=== PATIENT | female | born 2000 | race Caucasian/White ===

== ENCOUNTER 2019-10-29 09:00 | Emergency (ER) | payer OTHER ==
[2019-10-29 09:59] LABS: Urine Blood NEGATIVE (NEG); Urine Glucose NEGATIVE (NEG); Urine Protein NEGATIVE (NEG); Urine Specific Gravity 1.015 (1.005-1.030)
[2019-10-29 11:29] LABS: Urine Bacteria <20 /HPF (<20); Urine Culture Reflex Order NOT NEEDED; Urine Mucus HEAVY /HPF (NONE SEEN); Urine RBC <5 /HPF (NONE SEEN)
--- NOTE | 2019-10-29 11:44 | EDPHYS ---
Physician Documentation [facility] Name: Cara Doherty Age: 19 yrs Sex: Female : 2000 Arrival Date: 10/29/2019 Time: 09:02 Bed 16 Private MD: ED Physician Mateo Orozco HPI: 10/29 11:45 This 19 yrs old Female presents to ER via Ambulatory with complaints of kb Urinary Problem. 11:45 The patient presents with urinary symptoms, frequency. Onset: The symptoms/episode kb began/occurred 3 week(s) ago. Modifying factors: The symptoms are alleviated by nothing, the symptoms are aggravated by nothing. Associated signs and symptoms: Pertinent positives: urinary frequency. Associated signs and symptoms: Pertinent negatives: dysuria, fever. Severity of symptoms: At their worst the symptoms were moderate, in the emergency department the symptoms are unchanged. The patient has not experienced similar symptoms in the past. The patient has been recently seen by a physician:. Mother states pt has had urinary frequency for 3 weeks. PCP diagnosed a UTI at first and pt completed antibiotics, but is still having frequency. Denies fever, pain or any other urinary symptoms. 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 - Social history:: Smoking status: Patient denies any tobacco usage or history of. - Ebola Screening: : No symptoms or risks identified at this time. ROS: 11:38 Constitutional: Negative for fever, chills, and weight loss, ENT: Negative for injury, kb pain, and discharge, Neck: Negative for injury, pain, and swelling, Cardiovascular: Negative for chest pain, palpitations, and edema, Respiratory: Negative for shortness of breath, cough, wheezing, and pleuritic chest pain, Abdomen/GI: Negative for abdominal pain, nausea, vomiting, diarrhea, and constipation, Back: Negative for injury and pain, MS/Extremity: Negative for injury and deformity, Skin: Negative for injury, rash, and discoloration, Neuro: Negative for headache, weakness, numbness, tingling, and seizure. 11:38 : Positive for urinary frequency. Exam: 11:38 Constitutional: This is a well developed, well nourished patient who is awake, alert, kb and in no acute distress. Head/Face: Normocephalic, atraumatic. ENT: Nares patent. No nasal discharge, no septal abnormalities noted. Tympanic membranes are normal and external auditory canals are clear. Oropharynx with no redness, swelling, or masses, exudates, or evidence of obstruction, uvula midline. Mucous membranes moist. Neck: Trachea midline, no thyromegaly or masses palpated, and no cervical lymphadenopathy. Supple, full range of motion without nuchal rigidity, or vertebral point tenderness. No Meningismus. Chest/axilla: Normal chest wall appearance and motion. Nontender with no deformity. No lesions are appreciated. Cardiovascular: Regular rate and rhythm with a normal S1 and S2. No gallops, murmurs, or rubs. Normal PMI, no JVD. No pulse deficits. Respiratory: Lungs have equal breath sounds bilaterally, clear to auscultation and percussion. No rales, rhonchi or wheezes noted. No increased work of breathing, no retractions or nasal flaring. Abdomen/GI: Soft, non-tender, with normal bowel sounds. No distension or tympany. No guarding or rebound. No evidence of tenderness throughout. Back: No spinal tenderness. No costovertebral tenderness. Full range of motion. Skin: Warm, dry with normal turgor. Normal color with no rashes, no lesions, and no evidence of cellulitis. MS/ Extremity: Pulses equal, no cyanosis. Neurovascular intact. Full, normal range of motion. Neuro: Awake and alert, GCS 15, oriented to person, place, time, and situation. Cranial nerves II-XII grossly intact. Motor strength 5/5 in all extremities. Sensory grossly intact. Cerebellar exam normal. Normal gait. Vital Signs: 09:24 BP 121 / 87; Pulse 102; Resp 18 S; Temp 97.9(O); Pulse Ox 100% on R/A; aa5 09:24 Weight 40.37 kg (M); aa5 10:45 BP 125 / 75; Pulse 102; Resp 19 S; Pulse Ox 100% on R/A; ca1 11:12 BP 114 / 70; Pulse 92; Resp 17 S; Pulse Ox 100% on R/A; ca1 12:16 BP 111 / 80; Pulse 96; Resp 15 S; Pulse Ox 100% on R/A; ca1 MDM: 10:25 Patient medically screened. kb 11:38 Data reviewed: vital signs, nurses notes. Data interpreted: Pulse oximetry: on room air kb is 100 %. Interpretation: normal. 11:38 Counseling: I had a detailed discussion with the patient and/or guardian regarding: the kb historical points, exam findings, and any diagnostic results supporting the discharge/admit diagnosis, lab results, the need for outpatient follow up, a family practitioner, to return to the emergency department if symptoms worsen or persist or if there are any questions or concerns that arise at home. 10/29 09:41 Order name: Urine Dipstick--Ancillary (enter results); Complete Time: 10:03 em1 10/29 09:41 Order name: Urine --Ancillary (enter results); Complete Time: 10:03 em1 10/29 09:25 Order name: Urine Dipstick-Ancillary (obtain specimen); Complete Time: 09:40 kb 10/29 09:25 Order name: Urine Test (obtain specimen); Complete Time: 09:40 kb 10/29 10:25 Order name: Urine Microscopic Only; Complete Time: 11:31 kb Administered Medications: No medications were administered Disposition: 17:13 Co-signature as Attending Physician, Mateo Orozco MD. rn Disposition: 10/29/19 11:43 Discharged to Home. Impression: Urinary frequency. - Condition is Stable. - Discharge Instructions: Urinary Frequency, Adult. - School release form, Medication Reconciliation Form, Thank You Letter, Antibiotic Education, Prescription Opioid Use form. - Follow up: Emergency Department; When: As needed; Reason: Worsening of condition. Follow up: Private Physician; When: 2 - 3 days; Reason: Recheck today's complaints, Continuance of care, Re-evaluation by your physician. Signatures: Dispatcher [employer] EDGuera Larios, WAQAS HARPER-Mateo Prather MD MD rn Calderon, Audri RN RN aa5 Afsaneh Nuñez RN RN ca1 Corrections: (The following items were deleted from the chart) 12:18 11:43 10/29/2019 11:43 Discharged to Home. Impression: Urinary frequency. Condition is ca1 Stable. Forms are Medication Reconciliation Form, Thank You Letter, Antibiotic Education, Prescription Opioid Use. Follow up: Emergency Department; When: As needed; Reason: Worsening of condition. Follow up: Private Physician; When: 2 - 3 days; Reason: Recheck today's complaints, Continuance of care, Re-evaluation by your physician. kb
--- NOTE | 2019-10-29 11:44 | ER ---
Nurse's Notes [facility] Name: Cara Doherty Age: 19 yrs Sex: Female : 2000 Arrival Date: 10/29/2019 Time: 09:02 Bed 16 Private MD: Diagnosis: Urinary frequency Presentation: 10/29 09:20 Presenting complaint: Mother states: "she's had a UTI for about 2 weeks ago and she aa5 finished her amoxicillin already but it's not getting better". Pt's mother reports urinary frequency. Pt states "I just feel like I'm going to pee in my pants". Pt denies burning with urination. Pt's mother states "she's also lost about 15 lbs over the last few months". Transition of care: patient was not received from another setting of care. Onset of symptoms was October 2019. Risk Assessment: Do you want to hurt yourself or someone else? Patient reports no desire to harm self or others. Initial Sepsis Screen: Does the patient meet any 2 criteria? No. Patient's initial sepsis screen is negative. Does the patient have a suspected source of infection? No. Patient's initial sepsis screen is negative. Care prior to arrival: None. 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 - Social history:: Smoking status: Patient denies any tobacco usage or history of. - Ebola Screening: : No symptoms or risks identified at this time. Screenin:34 Abuse screen: Denies threats or abuse. Denies injuries from another. Nutritional ca1 screening: No deficits noted. Tuberculosis screening: No symptoms or risk factors identified. Fall Risk Secondary diagnosis (15 points) seizures, Gait- Impaired (20 pts.). Mental Status- Overestimates/Forgets Limitations (15 pts.). Total Wheeler Fall Scale indicates High Risk Score (45 or more points). Fall prevention measures have been instituted. Side Rails Up X 2 Frequent Obs/Assessments Occuring Family Present and informed to notify staff if the need to leave the bedside As available patient and family educated on Fall Prevention Program and Strategies. Assessment: 10:34 General: Appears in no apparent distress. comfortable, Behavior is calm, cooperative. ca1 Pain: Denies pain. Neuro: Level of Consciousness is awake, alert, obeys commands, Oriented to person, place, time, situation. Cardiovascular: Heart tones S1 S2 present Capillary refill < 3 seconds Patient's skin is warm and dry. Respiratory: Airway is patent Respiratory effort is even, unlabored, Respiratory pattern is regular, symmetrical, Breath sounds are clear bilaterally. GI: Abdomen is flat, non-distended, Bowel sounds present X 4 quads. Abd is soft and non tender X 4 quads. : Denies burning with urination, Parent/caregiver report the patient having urinary frequency urgency. EENT: No signs and/or symptoms were reported regarding the EENT system. Derm: Skin is intact, is healthy with good turgor, Skin is pink, warm \\T\\ dry. Musculoskeletal: Circulation, motion, and sensation intact. Capillary refill < 3 seconds. 11:12 Reassessment: Patient appears in no apparent distress at this time. No changes from ca1 previously documented assessment. Patient and/or family updated on plan of care and expected duration. Pain level reassessed. 12:16 Reassessment: Patient appears in no apparent distress at this time. No changes from ca1 previously documented assessment. Vital Signs: 09:24 BP 121 / 87; Pulse 102; Resp 18 S; Temp 97.9(O); Pulse Ox 100% on R/A; aa5 09:24 Weight 40.37 kg (M); aa5 10:45 BP 125 / 75; Pulse 102; Resp 19 S; Pulse Ox 100% on R/A; ca1 11:12 BP 114 / 70; Pulse 92; Resp 17 S; Pulse Ox 100% on R/A; ca1 12:16 BP 111 / 80; Pulse 96; Resp 15 S; Pulse Ox 100% on R/A; ca1 ED Course: 09:02 Patient arrived in ED. as 09:14 [facility] Rowe [facility]-C [facility]. kb 09:14 Mateo Orozco MD is Attending Physician. kb 09:15 Arm band placed on. aa5 09:22 Triage completed. aa5 10:30 Afsaneh Nuñez, KOLE is Primary Nurse. ca1 10:34 Patient has correct armband on for positive identification. Bed in low position. Call ca1 light in reach. Side rails up X2. Adult w/ patient. Pulse ox on. NIBP on. Warm blanket given. 10:44 Urine collected: clean catch specimen, clear, Amount Voided: 90mL. ca1 12:17 No provider procedures requiring assistance completed. Patient did not have IV access ca1 during this emergency room visit. Administered Medications: No medications were administered Outcome: 11:43 Discharge ordered by MD. kb 12:17 Discharged to home ambulatory, with family. ca1 12:17 Condition: stable 12:17 Discharge instructions given to mother Instructed on discharge instructions, follow up and referral plans. Demonstrated understanding of instructions, follow-up care. 12:18 Patient left the ED. ca1 Signatures: Guera Rowe, ACTIVITIES OFFICER-C ACTIVITIES OFFICER-Gloria Wilson Audri, RN RN aa Afsaneh Nuñez, KOLE RN ca1 Corrections: (The following items were deleted from the chart) 12:17 11:12 Reassessment: Patient appears in no apparent distress at this time. Patient is ca1 alert, oriented x 3, equal unlabored respirations, skin warm/dry/pink. ca1 12:17 12:16 Reassessment: Patient appears in no apparent distress at this time. Patient is ca1 alert, oriented x 3, equal unlabored respirations, skin warm/dry/pink. ca1
[2019-10-29 15:21] VITALS: O2SAT 100
[2019-10-29 15:23] VITALS: TEMP 97.9
[2019-10-29 15:26] VITALS: BP 111/80
== END 2019-10-29 12:18 | disposition home or self-care (01) ==
LOC: ER 09:00
DX: R35.0 Frequency of micturition (principal); G40.909 Epilepsy, unspecified, not intractable, without status epilepticus
CPT/HCPCS: 81003; 81015; 81025; 99283

== ENCOUNTER 2022-04-18 11:13 | Emergency (ER) | payer OTHER ==
[2022-04-18] MEDS ORDERED: NA CHLORIDE 0.9% 1,000 ML ONE (11:26)
[2022-04-18 11:49] LABS: Potassium 4.4 mmol/L (3.5-5.1)
--- NOTE | 2022-04-18 12:52 | ER ---
Nurse's Notes [facility] Name: Cara Doherty Age: 21 yrs Sex: Female : 2000 Arrival Date: 04/18/2022 Time: 11:14 Bed 11 Private MD: Diagnosis: Epileptic seizures related to external causes, not intractable Presentation: 04/18 11:16 Chief complaint: EMS states: Toned out for witnessed seizure. Coronavirus screen: tp1 Vaccine status: Patient reports receiving the 2nd dose of the covid vaccine. Client denies travel out of the [place] in the last 14 days. At this time, the client does not indicate any symptoms associated with coronavirus-19. Ebola Screen: Patient denies exposure to infectious person. Patient denies travel to an Ebola-affected area in the 21 days before illness onset. Initial Sepsis Screen: Does the patient meet any 2 criteria? No. Patient's initial sepsis screen is negative. Does the patient have a suspected source of infection? No. Patient's initial sepsis screen is negative. Risk Assessment: Do you want to hurt yourself or someone else? Patient reports no desire to harm self or others. Onset of symptoms was April 18, 2022. 11:16 Method Of Arrival: EMS: [facility] tp1 11:16 Acuity: NOEMY 3 tp1 11:30 Care prior to arrival: Glucose check: 78. tp1 Triage Assessment: 11:23 General: Appears in no apparent distress. comfortable, Behavior is calm, cooperative. tp1 Pain: Denies pain. EENT: Oral mucosa is dry. Neuro: Level of Consciousness is awake, alert, obeys commands, Oriented to person, place, time, situation. Neuro: Reports dizziness, weakness since the past 2-3 days. Cardiovascular: Patient's skin is warm and dry. Respiratory: Airway is patent Respiratory effort is even, unlabored, Respiratory pattern is regular. GI: Patient currently denies diarrhea, nausea, vomiting. : No signs and/or symptoms were reported regarding the genitourinary system. Derm: Skin is intact, Skin is pink, warm \\T\\ dry. Musculoskeletal: Circulation, motion, and sensation intact. Historical: - Allergies: 11:23 No Known Allergies; tp1 - Home Meds: 11:23 Lamictal Oral [Active]; Risperdal Oral [Active]; control pill [Active]; tp1 - PMHx: 11:23 Autism; epilepsy; tp1 - PSHx: 11:23 heart ablasion; tp1 - Immunization history:: Adult Immunizations unknown, Client reports receiving the 2nd dose of the Covid vaccine. - Social history:: Smoking status: Patient denies any tobacco usage or history of. - Family history:: not pertinent. - Hospitalizations: : No recent hospitalization is reported. Screenin:50 Abuse screen: Denies threats or abuse. Denies injuries from another. Nutritional ss screening: No deficits noted. Tuberculosis screening: Never had TB. Fall Risk Fall in past 12 months (25 points). Secondary diagnosis (15 points) seizures, IV access (20 points). Ambulatory Aid- None/Bed Rest/Nurse Assist (0 pts). Gait- Normal/Bed Rest/Wheelchair (0 pts) Mental Status- Oriented to own ability (0 pts). Assessment: 12:50 Reassessment: Patient appears in no apparent distress at this time. Patient and/or ss family updated on plan of care and expected duration. Pain level reassessed. Patient is alert, oriented x 3, equal unlabored respirations, skin warm/dry/pink. Pt c/o some mild dizziness. mother states, "that's ok. We will take care of it at home." Dr. Orozco notified that mother and patient are ready to go home. Patient denies pain at this time. Patient states feeling better. Patient states symptoms have improved. Vital Signs: 11:16 BP 102 / 73; Pulse 76; Resp 24; Temp 98.9; Pulse Ox 100% on R/A; Weight 43.09 kg; tp1 Height 0 ft. 1 in. (5 cm); Pain 0/10; 11:16 Body Mass Index 49650.51 (43.09 kg, 5 cm) tp1 ED Course: 11:14 Patient arrived in ED. rn 11:14 Mateo Orozco MD is Attending Physician. rn 11:23 Triage completed. tp1 11:29 Initial lab(s) drawn, by me, sent to lab. Inserted saline lock: 22 gauge in right jl7 antecubital area, using aseptic technique. Blood collected. 11:29 Arm band placed on. tp1 12:15 Oriana Hanna, KOLE is Primary Nurse. ss 12:50 Patient has correct armband on for positive identification. Bed in low position. Call ss light in reach. Side rails up X2. 13:11 No provider procedures requiring assistance completed. IV discontinued, intact, ss bleeding controlled, No redness/swelling at site. Pressure dressing applied. Administered Medications: 11:29 Drug: NS 0.9% 1000 ml Route: IV; Rate: 1000 ml; Site: right antecubital; jl7 12:43 Follow up: IV Status: Completed infusion; IV Intake: 1000ml ss Medication: 12:58 VIS not applicable for this client. ss Intake: 12:43 IV: 1000ml; Total: 1000ml. Outcome: 12:51 Discharge ordered by . rn 13:11 Discharged to home ambulatory. ss 13:11 Condition: good 13:11 Discharge instructions given to patient, Instructed on discharge instructions, follow up and referral plans. medication usage, Demonstrated understanding of instructions, follow-up care. 13:12 Patient left the ED. Signatures: Mateo Orozco MD MD rn Smirch, Shelby RN RN Sonam Serra RN RN jl7 Hoda Samlls tp1
--- NOTE | 2022-04-18 12:52 | EDPHYS ---
Physician Documentation [facility] Name: Cara Doherty Age: 21 yrs Sex: Female : 2000 Arrival Date: 04/18/2022 Time: 11:14 Bed 11 Private MD: ED Physician Mateo Orozco HPI: 04/18 12:47 This 21 yrs old Female presents to ER via EMS with complaints of seizure. rn 12:47 The patient presents after having a single isolated seizure. Seizure onset: just prior rn to arrival. Associated injury: The patient did not suffer any apparent associated injury. Current symptoms: Currently, the patient is not experiencing any symptoms. The patient has experienced similar episodes in the past. Mother and patient report recent COVID infection, getting over it now, no fever, had seizure today, hx of seizures, just had lamictal doubled last week, but given generic and mother concerned not working. Now back to baseline. Not eating or drinking much since COVID infection. NO trauma.. Historical: - Allergies: 11:23 No Known Allergies; tp1 - Home Meds: 11:23 Lamictal Oral [Active]; Risperdal Oral [Active]; control pill [Active]; tp1 - PMHx: 11:23 Autism; epilepsy; tp1 - PSHx: 11:23 heart ablasion; tp1 - Immunization history:: Adult Immunizations unknown, Client reports receiving the 2nd dose of the Covid vaccine. - Social history:: Smoking status: Patient denies any tobacco usage or history of. - Family history:: not pertinent. - Hospitalizations: : No recent hospitalization is reported. ROS: 12:47 Constitutional: Negative for fever, chills, and weight loss, Eyes: Negative for injury, rn pain, redness, and discharge, Neck: Negative for injury, pain, and swelling, Cardiovascular: Negative for chest pain, palpitations, and edema, Respiratory: Negative for shortness of breath, cough, wheezing, and pleuritic chest pain, Abdomen/GI: Negative for abdominal pain, nausea, vomiting, diarrhea, and constipation, Back: Negative for injury and pain, MS/Extremity: Negative for injury and deformity, Skin: Negative for injury, rash, and discoloration, Neuro: Negative for headache, weakness, numbness, tingling Exam: 12:47 Constitutional: This is a well developed, well nourished patient who is awake, alert, rn and in no acute distress. Head/Face: Normocephalic, atraumatic. Eyes: Periorbital areas with no swelling, redness, or edema. ENT: dry MM Cardiovascular: Regular rate and rhythm. No pulse deficits. Respiratory: No increased work of breathing, no retractions or nasal flaring. Abdomen/GI: soft, non-tender Skin: Warm, dry MS/ Extremity: Pulses equal, no cyanosis. Neuro: Awake and alert, GCS 15 Vital Signs: 11:16 BP 102 / 73; Pulse 76; Resp 24; Temp 98.9; Pulse Ox 100% on R/A; Weight 43.09 kg; tp1 Height 0 ft. 1 in. (5 cm); Pain 0/10; 11:16 Body Mass Index 55387.51 (43.09 kg, 5 cm) tp1 MDM: 11:14 Patient medically screened. rn 12:47 Differential diagnosis: seizure. Data reviewed: vital signs, nurses notes, lab test rn result(s), and as a result, I will discharge patient. Counseling: I had a detailed discussion with the patient and/or guardian regarding: the historical points, exam findings, and any diagnostic results supporting the discharge/admit diagnosis, lab results, the need for outpatient follow up, to return to the emergency department if symptoms worsen or persist or if there are any questions or concerns that arise at home. Response to treatment: the patient's symptoms have resolved after treatment, the patient's condition has returned to base line, the patient is now symptom free, patient is well hydrated. and as a result, I will discharge patient. Special discussion: I discussed with the patient/guardian in detail that at this point there is no indication for admission to the hospital. It is understood, however, that if the symptoms persist or worsen the patient needs to return immediately for re-evaluation. ED course: Mother states back to baseline, already called neurologist and going to get prescription of former lamictal. Well hydrated. Will dc home.. 04/18 11:15 Order name: Basic Metabolic Panel; Complete Time: 12:04 rn 04/18 11:15 Order name: IV Start; Complete Time: 11:29 rn 04/18 11:15 Order name: Cardiac monitoring; Complete Time: 11:34 rn Administered Medications: 11:29 Drug: NS 0.9% 1000 ml Route: IV; Rate: 1000 ml; Site: right antecubital; jl7 12:43 Follow up: IV Status: Completed infusion; IV Intake: 1000ml ss Disposition Summary: 04/18/22 12:51 Discharge Ordered Location: Home rn Problem: an acute exacerbation rn Symptoms: have improved rn Condition: Stable rn Diagnosis - Epileptic seizures related to external causes, not intractable rn Followup: rn - With: Private Physician - When: As needed - Reason: Recheck today's complaints, Re-evaluation by your physician Discharge Instructions: - Discharge Summary Sheet rn - Seizure, Adult rn Forms: - Medication Reconciliation Form rn - Thank You Letter rn - Antibiotic rn labor and delivery - Prescription Opioid Use rn - Work release form ss Signatures: Dispatcher [employer] Mateo Rueda MD MD rn Leal, Jahala, RN RN jl7 Hoda Smalls tp1 Oriana Hanna RN ss Corrections: (The following items were deleted from the chart) 12:57 11:15 Urine Dipstick-Ancillary ordered. rn ss
[2022-04-18 13:24] VITALS: BP 102/73; TEMP 98.9; O2SAT 100
== END 2022-04-18 13:12 | disposition home or self-care (01) ==
LOC: ER 11:13
DX: G40.509 Epileptic seizures related to external causes, not intractable, without status epilepticus (principal); F84.0 Autistic disorder; Z86.16 Personal history of COVID-19
CPT/HCPCS: 80048; 36415; 96360; 99284; J7030

== ENCOUNTER 2022-07-11 14:13 | Emergency (ER) | payer OTHER ==
[2022-07-11] MEDS ORDERED: NA CHLORIDE 0.9% 1,000 ML ONE (14:42)
[2022-07-11] MEDS ORDERED: IBUPROFEN 200 MG TAB PO ONE (14:42)
[2022-07-11 14:54] LABS: Absolute Lymphocytes (CBC) 1.1 K/uL (0.7-4.9); Hematocrit 44.6 % (36.0-45.0); Lymphocytes % 11.7 % (15.3-44.8); MCV 88.1 fL (80-100); MPV 7.2 fL (7.6-11.3); RBC Red Blood Cell Count 5.07 M/uL (3.86-4.86)
[2022-07-11 15:10] LABS: Albumin 3.8 g/dL (3.4-5.0); Bilirubin Total 0.5 mg/dL (0.2-1.0); Potassium 3.7 mmol/L (3.5-5.1); Protein, Total 7.5 g/dL (6.4-8.2)
--- NOTE | 2022-07-11 15:13 | RAD REPORT ---
EXAM DESCRIPTION: CT - Head Brain Wo Cont - 07/11/2022 3:00 pm CLINICAL HISTORY: trauma fall, seizure COMPARISON: <Comparisons> TECHNIQUE: Axial 5 mm thick images of the head were obtained without IV contrast. All CT scans are performed using dose optimization technique as appropriate and may include automated exposure control or mA/KV adjustment according to patient size. FINDINGS: No intracranial hemorrhage, mass, edema or shift of mid-line structures. No acute infarcti on changes seen. No abnormal extra-axial fluid collections. Ventricles are normal. No heterotopic gra y matter or developmental abnormality seen. No finding as a seizure focus. Mastoid air cells and visualized portions of the paranasal sinuses are clear. No acute bony findings. Very small right parietal scalp hematoma is seen. IMPRESSION: Negative non-contrast CT head examination.
[2022-07-11 15:22] LABS: Urine Blood Negative (Negative); Urine Glucose Negative (Negative); Urine Protein Trace (Negative); Urine Specific Gravity >=1.030 (1.005-1.030); Urine pH 5.5 (5.0-7.0)
--- NOTE | 2022-07-11 15:31 | ER ---
Nurse's Notes [facility] [place], [place] [facility] Name: Cara Doherty Age: 21 yrs Sex: Female : 2000 Arrival Date: 07/11/2022 Time: 14:19 Bed 7 Private MD: Diagnosis: Other seizures Presentation: 07/11 14:19 Chief complaint: EMS states: Had unwitnessed seizure, hx of seizures, family found pt ph on kitchen floor, was post-ictal for a short period, A\T\O x 4 w/ GCS 15 upon arrival to ER, is compliant w/ medications, reports pain to back of head, hematoma present. Coronavirus screen: Vaccine status: Patient reports receiving the 2nd dose of the covid vaccine. Ebola Screen: No symptoms or risks identified at this time. Initial Sepsis Screen: Does the patient meet any 2 criteria? No. Patient's initial sepsis screen is negative. Does the patient have a suspected source of infection? No. Patient's initial sepsis screen is negative. Risk Assessment: Do you want to hurt yourself or someone else? Patient reports no desire to harm self or others. Onset of symptoms was July 11, 2022. 14:19 Method Of Arrival: EMS: [facility] ph 14:19 Acuity: NOEMY 3 ph Triage Assessment: 14:23 General: Appears in no apparent distress. comfortable, slender, well groomed, Behavior ph is calm, cooperative, appropriate for age. Pain: Complains of pain in scalp. Neuro: Level of Consciousness is awake, alert, obeys commands, Oriented to person, place, time, situation, Seizure activity reported prior to arrival. Cardiovascular: Capillary refill < 3 seconds in bilateral fingers Patient's skin is warm and dry. Respiratory: Airway is patent Respiratory effort is even, unlabored, Respiratory pattern is regular, symmetrical. Derm: Skin is pink, warm \T\ dry. Musculoskeletal: Circulation, motion, and sensation intact. Range of motion: intact in all extremities. PSYCHOLOGICAL OPERATIONS SPECIALIST: 14:25 LMP N/A - control method ph Historical: - Allergies: 14:23 No Known Allergies; ph - Home Meds: 14:23 control pill [Active]; Lamictal Oral [Active]; Risperdal Oral [Active]; ph - PMHx: 14:23 Autism; epilepsy; ph - PSHx: 14:23 Heart ablasion; ph - Immunization history:: Adult Immunizations up to date. - Social history:: Smoking status: Patient denies any tobacco usage or history of. Screenin:24 Abuse screen: Denies threats or abuse. Denies injuries from another. Nutritional ph screening: No deficits noted. Tuberculosis screening: No symptoms or risk factors identified. Fall Risk Fall in past 12 months (25 points). Secondary diagnosis (15 points) seizures, IV access (20 points). Ambulatory Aid- None/Bed Rest/Nurse Assist (0 pts). Gait- Normal/Bed Rest/Wheelchair (0 pts) Mental Status- Oriented to own ability (0 pts). Total Wheeler Fall Scale indicates High Risk Score (45 or more points). Fall prevention measures have been instituted. Side Rails Up X 2 Frequent Obs/Assessments Occuring Family Present and informed to notify staff if the need to leave the bedside As available patient and family educated on Fall Prevention Program and Strategies. Assessment: 14:46 General: SEE TRIAGE ASSESSMENT. ph 14:50 Reassessment: Patient appears in no apparent distress at this time. No changes from db previously documented assessment. Patient is alert, oriented x 3, equal unlabored respirations, skin warm/dry/pink. Neuro: No deficits noted. Neuro: Level of Consciousness is awake, alert, obeys commands, Oriented to person, place, time. Cardiovascular: No deficits noted. Respiratory: No deficits noted. GI: No deficits noted. : No deficits noted. EENT: No deficits noted. Derm: No deficits noted. Musculoskeletal: No deficits noted. 15:30 Reassessment: Patient appears in no apparent distress at this time. No changes from db previously documented assessment. Patient and/or family updated on plan of care and expected duration. Pain level reassessed. Patient is alert, oriented x 3, equal unlabored respirations, skin warm/dry/pink. Patient denies pain at this time. 16:30 Reassessment: Patient appears in no apparent distress at this time. No changes from db previously documented assessment. Patient and/or family updated on plan of care and expected duration. Pain level reassessed. Patient is alert, oriented x 3, equal unlabored respirations, skin warm/dry/pink. Patient denies pain at this time. Patient states feeling better. Patient states symptoms have improved. Vital Signs: 14:19 BP 108 / 84; Pulse 104; Resp 18; Temp 98.0(TE); Pulse Ox 99% on R/A; Weight 45.36 kg; ph Height 5 ft. 5 in. (165.10 cm); 14:30 BP 108 / 84; Pulse 104; Resp 18; Pulse Ox 98% ; db 16:30 BP 121 / 81; Pulse 94; Resp 20; Pulse Ox 99% ; Pain 0/10; db 14:19 Body Mass Index 16.64 (45.36 kg, 165.10 cm) ph Blaine Coma Score: 14:23 Eye Response: spontaneous(4). Verbal Response: oriented(5). Motor Response: obeys ph commands(6). Total: 15. ED Course: 14:19 Patient arrived in ED. ph 14:19 Jim Marroquin MD is Attending Physician. jr11 14:23 Triage completed. ph 14:24 Arm band placed on Patient placed in an exam room, on a stretcher, on pulse oximetry. ph 14:25 Seizure precautions initiated. ph 14:30 Geovanna Awad RN is Primary Nurse. ph 14:45 Initial lab(s) drawn, by ky, sent to lab. Inserted saline lock: 22 gauge in right ph antecubital area, using aseptic technique. Blood collected. 16:30 Warm blanket given. db 16:30 No provider procedures requiring assistance completed. db 16:30 IV discontinued, intact, bleeding controlled, No redness/swelling at site. Pressure ph dressing applied. Administered Medications: 14:45 Drug: Ibuprofen 400 mg Route: PO; ph 16:15 Follow up: Response: No adverse reaction db 15:26 Drug: NS 0.9% 1000 ml Route: IV; Rate: 1 bolus; Site: right antecubital; ph 16:15 Follow up: Response: No adverse reaction; IV Status: Completed infusion; IV Intake: db 1000ml Medication: 14:25 VIS not applicable for this client. ph Intake: 16:15 IV: 1000ml; Total: 1000ml. db Outcome: 15:31 Discharge ordered by . jr11 16:35 Discharged to home ambulatory. db 16:35 Condition: stable 16:35 Condition: stable 16:35 Discharge instructions given to family, Instructed on discharge instructions. 16:36 Patient left the ED. db Signatures: Geovanna Awad RN RN ph Jim Marroquin MD MD jr11 Kendal Keys RN RN db
--- NOTE | 2022-07-11 15:31 | EDPHYS ---
Physician Documentation [facility] Name: Cara Doherty Age: 21 yrs Sex: Female : 2000 Arrival Date: 07/11/2022 Time: 14:19 Bed 7 Private MD: ED Physician Jim Marroquin HPI: 07/11 14:27 This 21 yrs old Female presents to ER via EMS with complaints of Seizure. jr11 14:27 The patient presents after having a single isolated seizure. Character of seizure(s): jr11 Loss of consciousness: the patient experienced loss of consciousness, Motor activity: unwitnessed . Seizure onset: just prior to arrival. Context: the seizure(s) was witnessed, by no one, occurred at home. Pt did not take mamictal today, last breakthrough sz 1 mo ago . Denies any concerns other than injury to posterior scalp. GENERALIST: 14:25 LMP N/A - control method ph Historical: - Allergies: 14:23 No Known Allergies; ph - Home Meds: 14:23 control pill [Active]; Lamictal Oral [Active]; Risperdal Oral [Active]; ph - PMHx: 14:23 Autism; epilepsy; ph - PSHx: 14:23 Heart ablasion; ph - Immunization history:: Adult Immunizations up to date. - Social history:: Smoking status: Patient denies any tobacco usage or history of. ROS: 14:27 All other systems are negative. jr11 Exam: 14:27 Constitutional: This is a well developed, well nourished patient who is awake, alert, jr11 and in no acute distress. Head/Face: 2x2cm hematoma posterior scalp Eyes: Extra-ocular motions intact. Lids and lashes normal. Conjunctiva and sclera are non-icteric and not injected. Cornea within normal limits. Periorbital areas with no swelling, redness, or edema. ENT: Nares patent. No nasal discharge, no septal abnormalities noted. Oropharynx with no redness, swelling, or masses, exudates, or evidence of obstruction, uvula midline. Mucous membranes moist. Neck: Trachea midline, no thyromegaly or masses palpated, and no cervical lymphadenopathy. Supple, full range of motion without nuchal rigidity, or vertebral point tenderness. No Meningismus. Chest/axilla: Normal chest wall appearance and motion. Nontender with no deformity. No lesions are appreciated. Cardiovascular: Regular rate and rhythm with a normal S1 and S2. No gallops, murmurs, or rubs. Normal PMI, no JVD. No pulse deficits. Respiratory: Lungs have equal breath sounds bilaterally, clear to auscultation and percussion. No rales, rhonchi or wheezes noted. No increased work of breathing, no retractions or nasal flaring. Abdomen/GI: Soft, non-tender, with normal bowel sounds. No distension or tympany. No guarding or rebound. No evidence of tenderness throughout. Back: No spinal tenderness. No costovertebral tenderness. Full range of motion. MS/ Extremity: Pulses equal, no cyanosis. Neurovascular intact. Full, normal range of motion. Neuro: Awake and alert, GCS 15, oriented to person, place, time, and situation. No gross motor or sensory deficits. Vital Signs: 14:19 BP 108 / 84; Pulse 104; Resp 18; Temp 98.0(TE); Pulse Ox 99% on R/A; Weight 45.36 kg; ph Height 5 ft. 5 in. (165.10 cm); 14:30 BP 108 / 84; Pulse 104; Resp 18; Pulse Ox 98% ; db 16:30 BP 121 / 81; Pulse 94; Resp 20; Pulse Ox 99% ; Pain 0/10; db 14:19 Body Mass Index 16.64 (45.36 kg, 165.10 cm) ph Hannibal Coma Score: 14:23 Eye Response: spontaneous(4). Verbal Response: oriented(5). Motor Response: obeys ph commands(6). Total: 15. MDM: 14:26 Patient medically screened. 11 14:27 Differential diagnosis: seizure. Data reviewed: vital signs, nurses notes. ED course: 11 Pt with zaheer pope, did not take meds this AM but took them [employer]. we will check electrolytes, no fever, low concern infection. 15:30 ED course: Mom comfortable taking patient home, ER warnings given, they will f/u with jr11 neuro . 07/11 14:27 Order name: CBC with Diff 11 07/11 14:27 Order name: CMP jr 07/11 14:27 Order name: UA jr11 07/11 14:27 Order name: UA MICROSCOPIC jr11 07/11 15:01 Order name: CBC with Automated Diff; Complete Time: 15:24 EDMS 07/11 15:10 Order name: Comprehensive Metabolic Panel; Complete Time: 15:24 EDMS 07/11 14:27 Order name: IV Saline Lock; Complete Time: 14:45 11 07/11 14:27 Order name: CT Head Brain wo Cont 11 07/11 15:13 Order name: CT; Complete Time: 15:24 EDMS 07/11 15:22 Order name: Urine Dipstick-Ancillary; Complete Time: 15:24 EDMS 07/11 15:52 Order name: Urinalysis; Complete Time: 16:05 EDMS 07/11 14:27 Order name: Labs collected and sent; Complete Time: 14:45 11 07/11 14:27 Order name: Urine Dipstick-Ancillary (obtain specimen); Complete Time: 15:26 [facility] 07/11 14:27 Order name: Urine Test (obtain specimen); Complete Time: 15:26 [facility] Administered Medications: 14:45 Drug: Ibuprofen 400 mg Route: PO; ph 16:15 Follow up: Response: No adverse reaction db 15:26 Drug: NS 0.9% 1000 ml Route: IV; Rate: 1 bolus; Site: right antecubital; ph 16:15 Follow up: Response: No adverse reaction; IV Status: Completed infusion; IV Intake: db 1000ml Disposition Summary: 07/11/22 15:31 Discharge Ordered Location: Home [facility] Condition: Stable jr Diagnosis - Other seizures jr Discharge Instructions: - Discharge Summary Sheet jr11 - Seizure, Adult [facility] Forms: - Medication Reconciliation Form [facility] - Thank You Letter jr11 - Antibiotic Education jr11 - Prescription Opioid Use [facility] Signatures: Dispatcher [employer] Geovanna Mena RN RN Jim Bullock MD MD jr11 Kendal Keys RN db
[2022-07-11 15:51] LABS: Urine Bilirubin NEGATIVE (Negative); Urine Blood Negative (Negative); Urine Clarity Clear (Clear); Urine Color Light-Yellow (Yellow); Urine Glucose NEGATIVE (Negative); Urine Mucus 1+ /HPF (None Seen); Urine Protein TRACE (Negative); Urine RBC <5 /HPF (None Seen); Urine Urobilinogen Normal (Normal); Urine pH 5.5 (5.0-7.0)
[2022-07-11 17:37] VITALS: TEMP 98
[2022-07-11 17:39] VITALS: BP 121/81; O2SAT 99
== END 2022-07-11 16:36 | disposition home or self-care (01) ==
LOC: ER 14:13
DX: G40.89 Other seizures (principal); F84.0 Autistic disorder
CPT/HCPCS: 85025; 81001; 36415; 80053; 70450; 96360; 99284; J7030; 81003; 81015

== ENCOUNTER 2023-05-22 15:44 | Emergency (ER) | payer OTHER ==
--- OUTSIDE RECORDS SUMMARY | 2023-05-22 15:47 | XMS REPORT | Continuity of Care Document ---
:[address] [facility] t Address [address] [place] [address] Care Team Providers Name Role Phone Nina Castellon Primary Care Physician Merly Valiente DDS Attending Clinician Payers Payer Name Policy Type Policy Number Effective Date Expiration Date S yajairace [employer] CHOICE POS [id number] 2002 00:00:00 II Problems This patient has no known problems. Allergies, Adverse Reactions, Alerts This patient has no known allergies or adverse reactions. Social History Social Habit Start Date Stop Date Quantity Comments Source Exposure to SARS-CoV-2 2023-02-27 2023-03-09 Not sure [facility] (event) 00:00:00 10:02:00 Sex Assigned At [birth year] [facility] 00:00:00 00:00:00 Smoking Status Start Date Stop Date Source Tobacco smoking consumption unknown [facility] Medications This patient has no known medications. Vital Signs Vital Name Observation Time Observation Value Comments Source Systolic blood pressure 2023-03-09 15:00:00 109 mm[Hg] [facility] Diastolic blood pressure 2023-03-09 15:00:00 69 mm[Hg] [facility] Heart rate 2023-03-09 15:00:00 68 /min [facility] Body height 2023-03-09 15:00:00 165.1 cm [facility] Body weight 2023-03-09 15:00:00 43.999 kg [facility] BMI 2023-03-09 15:00:00 16.14 kg/m2 [facility] Systolic blood pressure 2022-08-12 20:00:00 109 mm[Hg] [facility] Diastolic blood pressure 2022-08-12 20:00:00 73 mm[Hg] [facility] Heart rate 2022-08-12 20:00:00 88 /min [facility] Body height 2022-08-12 20:00:00 165.1 cm [facility] Body weight 2022-08-12 20:00:00 43.999 kg [facility] BMI 2022-08-12 20:00:00 16.14 kg/m2 [facility] Procedures This patient has no known procedures. Encounters Start End Encounter Admission Attending Care Care Encounter Source Date/Time Date/Time Type Type Clinicians Facility Department ID 2023-03-09 Outpatient [facility] [id number] [place] 05:10:33 [id number] [facility] 2023-03-08 Outpatient [facility] [id number] [place] 06:29:54 [id number] [facility] 2023-03-03 Outpatient [facility] [id number] [place] 12:22:48 [id number] [facility] 2022-08-12 Outpatient [facility] [id number] [place] 14:48:17 [id number] [facility] 2022-08-11 Outpatient [facility] [id number] [place] 06:31:40 [id number] [facility] 2022-06-22 Outpatient [facility] [id number] [place] 09:13:30 [id number] [facility] 2023-03-09 2023-03-09 Office Rocco, [facility] [id number] [place] 10:00:00 10:23:22 Visit Merly SCHAFERLOCK [id number] [facility] TOW [id number] 2022-08-12 2022-08-12 Office Deeptiy, [facility] [id number] [place] 15:00:00 16:44:56 Visit Merly JOSEPH [id number] H [facility] [place]OWER [id number] Results This patient has no known results.
[2023-05-22] MEDS ORDERED: PROMETHAZINE INJ 25 MG/ML AMP ONE ×3 (16:24→20:58)
[2023-05-22] MEDS ORDERED: MECLIZINE HCL 12.5 MG TAB ONE (16:24)
[2023-05-22 16:30] LABS: Absolute Lymphocytes (CBC) 1.2 K/uL (0.7-4.9); Hematocrit 40.4 % (36.0-45.0); Lymphocytes % 13.6 % (15.3-44.8); MPV 7.1 fL (7.6-11.3); Platelets 195 thou/uL (152-406); RBC Red Blood Cell Count 4.48 M/uL (3.86-4.86)
[2023-05-22 16:40] LABS: Albumin 3.3 g/dL (3.4-5.0); Bilirubin Total 0.4 mg/dL (0.2-1.0); Potassium 3.9 mEq/L (3.5-5.1); Protein, Total 6.7 g/dL (6.4-8.2)
--- NOTE | 2023-05-22 19:25 | RAD REPORT ---
EXAM DESCRIPTION: CTAbdomen Pelvis W Contrast - 05/22/2023 7:20 pm CLINICAL HISTORY: Abdominal pain. ABD PAIN COMPARISON: <Comparisons> TECHNIQUE: Biphasic CT imaging of the abdomen and pelvis was performed with 100 ml non-ionic IV cont rast. All CT scans are performed using dose optimization technique as appropriate and may include automated exposure control or mA/KV adjustment according to patient size. FINDINGS: The lung bases are clear. The liver, spleen, pancreas, adrenal glands and kidneys are within normal limits. No bowel obstruction, free air, free fluid or abscess. There is a large amount retained stool in the colon. The appendix is normal. No evidence of significant lymphadenopathy. No suspicious bony findings. IMPRESSION: No acute intra-abdominal or pelvic finding. Significant constipation.
--- NOTE | 2023-05-22 20:11 | ER ---
Nurse's Notes [facility] Name: Cara Do[facility] Age: 22 yrs Sex: Female : 2000 Arrival Date: 05/22/2023 Time: 15:44 Bed 8 Private MD: Diagnosis: Nausea with vomiting, unspecified;Dizziness and giddiness Presentation: 05/22 15:49 Chief complaint: EMS states: nausea/vomiting and dizziness that began when neurologist aa5 increased Lamotrigine to 400 mg approximately 3 weeks ago. Pt's mother states "she had been on Lamotrigine 200 mg for years and she started having more seizures recently so they increased her dose to 400 mg now". 15:49 Coronavirus screen: nausea, vomiting. Ebola Screen: Patient denies travel to an [facility] Ebola-affected area in the 21 days before illness onset. Initial Sepsis Screen: Does the patient meet any 2 criteria? No. Patient's initial sepsis screen is negative. Does the patient have a suspected source of infection? No. Patient's initial sepsis screen is negative. Risk Assessment: Do you want to hurt yourself or someone else? Patient reports no desire to harm self or others. Onset of symptoms was April 2023. Care prior to arrival: Medication(s) given: Normal saline infusion, 500 mL, zofran 4 mg, Toradol 15 mg IV initiated. 20 GA, in the right antecubital area. 15:49 Acuity: NOEMY 3 aa5 15:49 Method Of Arrival: EMS: [facility] aa5 Historical: - Allergies: 15:49 No Known Allergies; aa5 - Home Meds: 16:02 lamotrigine oral [Active]; Sandy [Active]; Amantadine Oral [Active]; Naltrexon HCL rs5 [Active]; Neurobiologix DCL [Active]; Neurobiologix DIM [Active]; cranberry extract oral [Active]; Propanolol ER [Active]; Pro Biotic [Active]; Sodium Alginate [Active]; - PMHx: 15:49 Autism; epilepsy; constipation; aa5 - PSHx: 15:49 Heart ablasion; aa5 - Immunization history:: Adult Immunizations unknown. - Social history:: Smoking status: Patient denies any tobacco usage or history of. Screenin:19 [facility] ED Fall Risk Assessment (Adult) History of falling in the last 3 months, aa5 including since admission Yes- physiologic fall (2 pts) Confusion or Disorientation No (0 pts) Intoxicated or Sedated No (0 pts) Impaired Gait No (0 pts) Mobility Assist Device Used No (0 pt) Altered Elimination No (0 pt) Score/Fall Risk Level 0 - 2 = Low Risk Oriented to surroundings, Maintained a safe environment, Educated pt \\T\\ family on fall prevention, incl call for assistance when getting out of bed. Abuse screen: No signs of abuse. Nutritional screening: Has had N/V for 3 or more days. Tuberculosis screening: No symptoms or risk factors identified. Assessment: 15:49 General: Appears uncomfortable, Behavior is calm, cooperative. Pain: Complains of pain aa5 in abdomen Pain currently is 6 out of 10 on a pain scale. Quality of pain is described as crampy, Pain began 2-3 days ago. Is intermittent. Neuro: Level of Consciousness is awake, alert, obeys commands, Oriented to person, place, time, situation, Moves all extremities. Speech is normal, Facial symmetry appears normal, Reports dizziness. Cardiovascular: Heart tones S1 S2 present Rhythm is regular. Respiratory: Airway is patent Respiratory effort is even, unlabored, Respiratory pattern is regular, symmetrical, Breath sounds are clear bilaterally. GI: Abdomen is flat, non-distended, Bowel sounds present X 4 quads. Abd is soft and non tender X 4 quads. Reports intolerance of fluids, intolerance of food, nausea, vomiting, Patient currently denies diarrhea. : No signs and/or symptoms were reported regarding the genitourinary system. EENT: No signs and/or symptoms were reported regarding the EENT system. Derm: Skin is pink, warm \\T\\ dry. Musculoskeletal: Range of motion: intact in all extremities. 16:18 Reassessment: Patient is alert, oriented x 3, equal unlabored respirations, skin aa5 warm/dry/pink. Pt dry heaving. . 16:50 Reassessment: Patient is alert, oriented x 3, equal unlabored respirations, skin aa5 warm/dry/pink. Pt reports nausea and dizziness have not improved. Meclizine on hold, pt states she still cannot take pills at this time due to nausea. . 17:48 Reassessment: Patient is alert, oriented x 3, equal unlabored respirations, skin aa5 warm/dry/pink. Pt states nausea has not improved, pt refused to take meclizine. Pt states "I am afraid I'll throw it up and I don't' want to throw up anymore" . 18:00 Reassessment: Patient is alert, oriented x 3, equal unlabored respirations, skin aa5 warm/dry/pink. Pt agrees to taking Meclizine at this time. . 19:54 Reassessment: Patient appears in no apparent distress at this time. Patient states kl feeling better. Patient states symptoms have improved. 21:00 Reassessment: Patient appears in no apparent distress at this time. Patient states kl symptoms have improved. Vital Signs: 15:49 BP 116 / 78; Pulse 75; Resp 18 S; Temp 98.2(O); Pulse Ox 98% on R/A; aa5 17:45 BP 111 / 69; Pulse 88; Resp 17; Pulse Ox 97% on R/A; aa5 19:55 BP 130 / 75; Pulse 74; Resp 18; Pulse Ox 99% on R/A; kl 21:00 BP 119 / 76; Pulse 65; Resp 18; Pulse Ox 98% on R/A; kl ED Course: 15:49 Patient arrived in ED. bd 15:49 Patient has correct armband on for positive identification. Bed in low position. Call mm9 light in reach. Side rails up X2. Adult w/ patient. Warm blanket given. Pulse ox on. NIBP on. 15:49 Maintain EMS IV. Dressing intact. Site clean \\T\\ dry. aa5 15:55 Guera Rowe F[facility]-C [facility]. kb 15:55 Marek Chance DO is Attending Physician. kb 15:57 Lana Mendieta, KOLE is Primary Nurse. aa5 16:05 Triage completed. aa5 19:00 Report given to KOLE De Anda and KOLE Grady. aa5 19:21 CT Abd/Pelvis - IV Contrast Only In Process Unspecified. EDMS 21:02 No provider procedures requiring assistance completed. IV discontinued, intact, kl bleeding controlled, No redness/swelling at site. Pressure dressing applied. Administered Medications: 16:18 Drug: Promethazine IVP 6.25 mg Route: IVP; Site: right antecubital; aa5 16:50 Follow up: Response: No adverse reaction; Nausea unchanged aa5 17:00 Drug: Promethazine IVP 6.25 mg Route: IVP; Site: right antecubital; aa5 17:48 Follow up: Response: No adverse reaction aa5 17:48 Not Given (Patient Refused): Meclizine PO 25 mg PO once aa5 18:00 Drug: Meclizine PO 25 mg Route: PO; aa5 18:30 Follow up: No adverse effect noted rs5 20:48 Drug: diphenhydrAMINE IVP 12.5 mg Route: IVP; Site: right forearm; kl 21:00 Follow up: Response: No adverse reaction kl 20:52 Drug: metoCLOPramide IVP 10 mg Route: IVP; Site: right forearm; kl 21:00 Follow up: Response: No adverse reaction Intake: Outcome: 20:10 Discharge ordered by . kb 21:01 Discharged to home via wheelchair, with family. 21:01 Condition: improved 21:01 Discharge instructions given to family, Instructed on discharge instructions, follow up and referral plans. medication usage, Demonstrated understanding of instructions, follow-up care, medications. 21:03 Patient left the ED. Signatures: Dispatcher [employer] EDMS Guera Rowe, MEREDITH-C KEYPUNCHER-Ayana Salinas Kimberly, RN RN kl Calderon, Audri, RN RN aa5 Tati Chance RN RN ld1 Cely To Ricky, RN RN rs5 Corrections: (The following items were deleted from the chart) 17:50 17:48 Reassessment: Patient is alert, oriented x 3, equal unlabored respirations, skin aa5 warm/dry/pink. aa5 17:51 17:45 BP 111 / 69; Pulse 103bpm; Resp 17bpm; Pulse Ox 97% RA; ld1 aa5
--- NOTE | 2023-05-22 20:11 | EDPHYS ---
Physician Documentation [facility] Name: Cara Doherty Age: 22 yrs Sex: Female : 2000 Arrival Date: 05/22/2023 Time: 15:44 Bed 8 Private MD: ED Physician Marek Chance HPI: 05/22 16:15 This 22 yrs old Female presents to ER via EMS with complaints of Nausea/Vomiting. kb 16:15 The patient presents to the emergency department with nausea, vomiting, abdominal pain. kb Onset: The symptoms/episode began/occurred 3 week(s) ago. Possible causes: increased lamotrigine dosage. The symptoms are aggravated by nothing. The symptoms are alleviated by nothing. Associated signs and symptoms: Pertinent positives: abdominal pain, nausea, vomiting, dizziness. Severity of symptoms: At their worst the symptoms were moderate in the emergency department the symptoms are unchanged. The patient has not experienced similar symptoms in the past. The patient has not recently seen a physician. Historical: - Allergies: 15:49 No Known Allergies; aa5 - Home Meds: 16:02 lamotrigine oral [Active]; Sandy [Active]; Amantadine Oral [Active]; Naltrexon HCL rs5 [Active]; Neurobiologix DCL [Active]; Neurobiologix DIM [Active]; cranberry extract oral [Active]; Propanolol ER [Active]; Pro Biotic [Active]; Sodium Alginate [Active]; - PMHx: 15:49 Autism; epilepsy; constipation; aa5 - PSHx: 15:49 Heart ablasion; aa5 - Immunization history:: Adult Immunizations unknown. - Social history:: Smoking status: Patient denies any tobacco usage or history of. ROS: 16:15 Constitutional: Negative for fever, chills, and weight loss. kb 16:15 Abdomen/GI: Positive for abdominal pain, nausea and vomiting. 16:15 Neuro: Positive for dizziness. 16:15 All other systems are negative. Exam: 16:15 Constitutional: This is a well developed, well nourished patient who is awake, alert, kb and in no acute distress. Head/Face: Normocephalic, atraumatic. ENT: Moist Mucous membranes Cardiovascular: Regular rate and rhythm with a normal S1 and S2. No gallops, murmurs, or rubs. No pulse deficits. Respiratory: Respirations even and unlabored. No increased work of breathing. Talking in full sentences Abdomen/GI: Soft, non-tender. No distention Skin: Warm, dry with normal turgor. Normal color. MS/ Extremity: Pulses equal, no cyanosis. Neurovascular intact. Full, normal range of motion. Neuro: Awake and alert, GCS 15, oriented to person, place, time, and situation. Moves all extremities. Normal gait. Vital Signs: 15:49 BP 116 / 78; Pulse 75; Resp 18 S; Temp 98.2(O); Pulse Ox 98% on R/A; aa5 17:45 BP 111 / 69; Pulse 88; Resp 17; Pulse Ox 97% on R/A; aa5 19:55 BP 130 / 75; Pulse 74; Resp 18; Pulse Ox 99% on R/A; kl 21:00 BP 119 / 76; Pulse 65; Resp 18; Pulse Ox 98% on R/A; kl MDM: 15:55 Patient medically screened. kb 16:16 Differential diagnosis: Nonspecific abd pain, viral gastroenteritis, adverse reaction kb to medication, dehydration. Data reviewed: vital signs, nurses notes. Historians other than the Patient: Parent: mother and father. 20:11 Counseling: I had a detailed discussion with the patient and/or guardian regarding: the kb historical points, exam findings, and any diagnostic results supporting the discharge/admit diagnosis, lab results, radiology results, the need for outpatient follow up, a neurologist, to return to the emergency department if symptoms worsen or persist or if there are any questions or concerns that arise at home. 05/22 16:04 Order name: CBC with Diff; Complete Time: 16:37 kb 05/22 16:04 Order name: CMP; Complete Time: 16:47 kb 05/22 16:04 Order name: Lipase; Complete Time: 16:47 kb 05/22 17:48 Order name: Test, Serum; Complete Time: 18:42 aa5 05/22 16:59 Order name: CT Abd/Pelvis - IV Contrast Only; Complete Time: 19:28 kb 05/22 16:04 Order name: IV Saline Lock; Complete Time: 16:18 kb 05/22 16:04 Order name: Labs collected and sent; Complete Time: 16:18 kb Administered Medications: 16:18 Drug: Promethazine IVP 6.25 mg Route: IVP; Site: right antecubital; aa5 16:50 Follow up: Response: No adverse reaction; Nausea unchanged aa5 17:00 Drug: Promethazine IVP 6.25 mg Route: IVP; Site: right antecubital; aa5 17:48 Follow up: Response: No adverse reaction aa5 17:48 Not Given (Patient Refused): Meclizine PO 25 mg PO once aa5 18:00 Drug: Meclizine PO 25 mg Route: PO; aa5 18:30 Follow up: No adverse effect noted rs5 20:48 Drug: diphenhydrAMINE IVP 12.5 mg Route: IVP; Site: right forearm; kl 21:00 Follow up: Response: No adverse reaction kl 20:52 Drug: metoCLOPramide IVP 10 mg Route: IVP; Site: right forearm; kl 21:00 Follow up: Response: No adverse reaction kl Disposition: 17:05 Co-signature as Attending Physician, Marek MARQUES was immediately available on-site ms3 in the Emergency Department for consultation in the care of the patient. Disposition Summary: 05/22/23 20:10 Discharge Ordered Location: Home kb Condition: Stable kb Diagnosis - Nausea with vomiting, unspecified kb - Dizziness and giddiness kb Followup: kb - With: Emergency Department - When: As needed - Reason: Worsening of condition Followup: kb - With: Private Physician - When: 2 - 3 days - Reason: Recheck today's complaints, Continuance of care, Re-evaluation by your physician Discharge Instructions: - Discharge Summary Sheet kb - Nausea and Vomiting, Adult, [id number] kb - Dizziness, [id number] kb Forms: - Medication Reconciliation Form kb - Thank You Letter kb - Antibiotic Education kb - Prescription Opioid Use kb - Patient Portal Instructions kb - Leadership Thank You Letter kb Prescriptions: - Meclizine 25 mg Oral Tablet - take 1 tablet by ORAL route every 8 hours As needed; 30 tablet; Refills: 0, kb Product Selection Permitted Signatures: Dispatcher [employer] Guera Gregory FNP-C FNP-Huyen Doll RN RN kl Calderon, Audri, RN RN aa5 Marek Chance DO DO ms3 Nazario, Simon, RN RN rs5
[2023-05-22] MEDS ORDERED: METOCLOPRAMIDE 10 MG/2mL INJ ONE (20:59)
[2023-05-22] MEDS ORDERED: DIPHENHYDRAMINE 50 MG/ML VIAL ONE (21:02)
[2023-05-22 21:11] VITALS: TEMP 98.2
[2023-05-22 21:15] VITALS: BP 119/76; O2SAT 98
== END 2023-05-22 21:03 | disposition home or self-care (01) ==
LOC: ER 15:44
DX: R11.2 Nausea with vomiting, unspecified (principal); R42 Dizziness and giddiness; R56.9 Unspecified convulsions
CPT/HCPCS: 85025; 36415; 84703; 83690; 80053; 74177; 99284; Q9967; J2550 ×3; J8597; J2765; J1200

== ENCOUNTER 2023-06-06 09:48 | Emergency (ER) | payer OTHER ==
--- OUTSIDE RECORDS SUMMARY | 2023-06-06 09:51 | XMS REPORT | Continuity of Care Document ---
:2000 Author Organization [facility] t Address [address] [place] [address] Care Team Providers Name Role Phone Nina Castellon Primary Care Physician Merly Valiente DDS Attending Clinician Payers Payer Name Policy Type Policy Number Effective Date Expiration Date S yajairace [employer] CHOICE POS [id number] 2002 00:00:00 II Problems This patient has no known problems. Allergies, Adverse Reactions, Alerts This patient has no known allergies or adverse reactions. Social History Social Habit Start Date Stop Date Quantity Comments Source Exposure to SARS-CoV-2 2023-02-27 2023-03-09 Not sure [facility] (event) 00:00:00 10:02:00 Sex Assigned At [address] [facility] 00:00:00 00:00:00 Smoking Status Start Date Stop Date Source Tobacco smoking consumption unknown [facility] Medications This patient has no known medications. Vital Signs Vital Name Observation Time Observation Value Comments Source Systolic blood pressure 2023-03-09 15:00:00 109 mm[Hg] [facility] Diastolic blood pressure 2023-03-09 15:00:00 69 mm[Hg] [facility] Heart rate 2023-03-09 15:00:00 68 /min [facility] Body height 2023-03-09 15:00:00 165.1 cm [facility] Body weight 2023-03-09 15:00:00 43.999 kg [facility] BMI 2023-03-09 15:00:00 16.14 kg/m2 [facility] Systolic blood pressure 2022-08-12 20:00:00 109 mm[Hg] [facility] Diastolic blood pressure 2022-08-12 20:00:00 73 mm[Hg] [facility] Heart rate 2022-08-12 20:00:00 88 /min [facility] Body height 2022-08-12 20:00:00 165.1 cm [facility] Body weight 2022-08-12 20:00:00 43.999 kg [facility] BMI 2022-08-12 20:00:00 16.14 kg/m2 [facility] Procedures This patient has no known procedures. Encounters Start End Encounter Admission Attending Care Care Encounter Source Date/Time Date/Time Type Type Clinicians Facility Department ID 2023-03-09 Outpatient [facility] ER [id number] CT 05:10:33 [id number] [facility] 2023-03-08 Outpatient [facility] ER [id number] CT 06:29:54 [id number] [facility] 2023-03-03 Outpatient [facility] ER [id number] CT 12:22:48 [id number] [facility] 2022-08-12 Outpatient [facility] ER [id number] CT 14:48:17 [id number] [facility] 2022-08-11 Outpatient [facility] ER [id number] CT 06:31:40 [id number] [facility] 2022-06-22 Outpatient [facility] ER [id number] CT 09:13:30 [id number] [facility] 2023-03-09 2023-03-09 Office Rocco, [facility] [id number] 10:00:00 10:23:22 Visit Merly SCHAFERLOCK [id number] [facility] [id number] 2022-08-12 2022-08-12 Office Deeptiy, [facility] [id number] [place] 15:00:00 16:44:56 Visit Merly JOSEPH [id number] [facility] [place] [id number] Results This patient has no known results.
[2023-06-06 10:43] LABS: Absolute Lymphocytes (CBC) 2.5 K/uL (0.7-4.9); Lymphocytes % 24.7 % (15.3-44.8); MCV 88.3 fL (80-100); MPV 6.9 fL (7.6-11.3); Platelets 141 thou/uL (152-406); RBC Red Blood Cell Count 4.75 M/uL (3.86-4.86)
[2023-06-06] MEDS ORDERED: FAMOTIDINE 20 MG/2 ML VIAL IV ONE (10:47)
[2023-06-06] MEDS ORDERED: NA CHLORIDE 0.9% 1,000 ML ONE (10:47)
[2023-06-06] MEDS ORDERED: ONDANSETRON 4 MG/2 ML VIAL ONE (10:47)
[2023-06-06 11:01] LABS: Albumin 3.8 g/dL (3.4-5.0); Bilirubin Total 0.4 mg/dL (0.2-1.0); Potassium 4.1 mEq/L (3.5-5.1)
[2023-06-06] MEDS ORDERED: MECLIZINE HCL 12.5 MG TAB ONE (11:24)
--- NOTE | 2023-06-06 12:12 | RAD REPORT ---
EXAM DESCRIPTION: RAD - Abdomen 1 View (KUB) - 06/06/2023 12:03 pm CLINICAL HISTORY: Abdomen pain FINDINGS: The bowel gas pattern is unremarkable. Moderate to large amount of stool throughout the colon. Rotoscoliosis involves the spine No significant abnormal calcification is displayed
[2023-06-06] MEDS ORDERED: NA CHLORIDE 0.9% 50 ML ONE ×2 (12:26→13:46)
[2023-06-06] MEDS ORDERED: METOCLOPRAMIDE 10 MG/2mL INJ ONE (12:26)
[2023-06-06 12:58] LABS: Specific Gravity 1.029 (1.005-1.030)
[2023-06-06 13:06] LABS: Specific Gravity 1.029 (1.005-1.030); Urine Bacteria 20-50 /HPF (<20); Urine Bilirubin NEGATIVE (Negative); Urine Blood Negative (Negative); Urine Clarity Turbid (Clear); Urine Color Yellow (Yellow); Urine Glucose 1+ (Negative); Urine Mucus 3+ /HPF (None Seen); Urine Protein 1+ (Negative); Urine RBC <5 /HPF (None Seen); Urine Urobilinogen Normal (Normal)
[2023-06-06] MEDS ORDERED: CEFTRIAXONE 1000 MG/VIAL ONE (13:46)
--- NOTE | 2023-06-06 14:41 | ER ---
Nurse's Notes [facility] Name: Cara Doherty Age: 22 yrs Sex: Female : 2000 Arrival Date: 06/06/2023 Time: 09:48 Bed 13 Private MD: Diagnosis: Dizziness and giddiness;Nausea with vomiting, unspecified;UTI/ Urinary tract infection, site not specified;Constipation Presentation: 06/06 10:07 Chief complaint: Patient states: thinks she has the stomach bug, she started vomiting iw at 2 am, dad says she was seen here two weeks ago for the same thing, he is worried that she will get dehydrated, she also has seizures , she also woke up with dizziness. Coronavirus screen: Client presents with at least one sign or symptom that may indicate coronavirus-19. Ebola Screen: Patient negative for fever greater than or equal to 101.5 degrees Fahrenheit, and additional compatible Ebola Virus Disease symptoms Patient denies exposure to infectious person. Patient denies travel to an Ebola-affected area in the 21 days before illness onset. Initial Sepsis Screen: Does the patient meet any 2 criteria? No. Patient's initial sepsis screen is negative. Does the patient have a suspected source of infection? No. Patient's initial sepsis screen is negative. Risk Assessment: Do you want to hurt yourself or someone else? Patient reports no desire to harm self or others. Onset of symptoms was June 06, 2023. 10:07 Method Of Arrival: Wheelchair iw 10:07 Acuity: NOEMY 3 iw Triage Assessment: 12:00 GI: Abdomen is round non-distended, Reports nausea. eh3 14:50 General: Behavior is calm, cooperative. 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 - Social history:: Smoking status: Patient denies any tobacco usage or history of. Screenin:20 [facility] ED Fall Risk Assessment (Adult) History of falling in the last 3 months, mb9 including since admission No falls in past 3 months (0 pts) Confusion or Disorientation No (0 pts) Intoxicated or Sedated No (0 pts) Impaired Gait No (0 pts) Mobility Assist Device Used No (0 pt) Altered Elimination No (0 pt) Score/Fall Risk Level 0 - 2 = Low Risk Oriented to surroundings, Maintained a safe environment, Educated pt \T\ family on fall prevention, incl call for assistance when getting out of bed. Abuse screen: Denies threats or abuse. Nutritional screening: No deficits noted. Tuberculosis screening: No symptoms or risk factors identified. Assessment: 10:19 General: Appears uncomfortable. Pain: Complains of pain in abdomen Pain does not mb9 radiate. Quality of pain is described as aching, throbbing. Neuro: Reynolds Agitation-Sedation Scale (RASS): 0 - Alert and Calm Level of Consciousness is awake, alert, obeys commands, Oriented to person, place, time, situation, Appropriate for age. Neuro: Reports dizziness. Cardiovascular: Patient's skin is warm and dry. Respiratory: Airway is patent Respiratory effort is even, unlabored, Respiratory pattern is regular, symmetrical. GI: Abdomen is round Bowel sounds present X 4 quads. Abd is soft Abdomen is tender to palpation in suprapubic area Reports constipation, nausea, vomiting. : No signs and/or symptoms were reported regarding the genitourinary system. Derm: Skin is pink, warm \T\ dry. Musculoskeletal: Range of motion: intact in all extremities. 11:20 Reassessment: No changes from previously documented assessment. Patient and/or family mb9 updated on plan of care and expected duration. Pain level reassessed. Patient is alert, oriented x 3, equal unlabored respirations, skin warm/dry/pink. 12:00 Reassessment: Patient appears in no apparent distress at this time. Patient and/or eh3 family updated on plan of care and expected duration. Pain level reassessed. Patient is alert, oriented x 3, equal unlabored respirations, skin warm/dry/pink. 13:00 Reassessment: Patient appears in no apparent distress at this time. Patient and/or eh3 family updated on plan of care and expected duration. Pain level reassessed. Patient is alert, oriented x 3, equal unlabored respirations, skin warm/dry/pink. Patient states symptoms have improved. 14:00 Reassessment: Patient appears in no apparent distress at this time. Patient and/or eh3 family updated on plan of care and expected duration. Pain level reassessed. Patient is alert, oriented x 3, equal unlabored respirations, skin warm/dry/pink. Vital Signs: 10:07 BP 98 / 80; Pulse 110; Resp 16; Temp 98.6; Pulse Ox 97% on R/A; Weight 48.53 kg (R); iw 11:19 BP 111 / 74; Pulse 88; Resp 18; Pulse Ox 100% on R/A; mb9 12:00 BP 120 / 72; Pulse 93; Resp 17; Pulse Ox 100% on R/A; eh3 13:00 BP 121 / 69; Pulse 101; Resp 18; Pulse Ox 99% on R/A; eh3 14:00 BP 119 / 80; Pulse 88; Resp 16; Pulse Ox 100% on R/A; eh3 ED Course: 09:51 Patient arrived in ED. mg5 10:02 Jamaal Enamorado PA is PHCP. cp 10:02 Marek Chance DO is Attending Physician. cp 10:08 Triage completed. iw 10:09 Arm band placed on. iw 10:13 Queenie Joel, KOLE is Primary Nurse. mb9 10:20 Placed in gown. Bed in low position. Call light in reach. Side rails up X 1. Client mb9 placed on continuous cardiac and pulse oximetry monitoring. NIBP monitoring applied. 10:35 Inserted saline lock: 22 gauge in right antecubital area, using aseptic technique. ds4 Blood collected. 11:20 Report given to KOLE Delgado. mb9 12:00 Provided Education on: Use of call christensen. eh3 12:06 XRAY Abdomen 1 View (KUB) In Process Unspecified. EDMS 12:49 Urinalysis w/ reflexes Sent. eh3 12:49 Test, Urine Sent. eh3 14:40 Diet: Patient given snack. Patient given water. Tolerated well. eh3 14:49 No provider procedures requiring assistance completed. eh3 15:26 IV discontinued, intact, bleeding controlled, No redness/swelling at site. Pressure eh3 dressing applied. Administered Medications: 10:41 Drug: Ondansetron IVP 4 mg Route: IVP; Site: right antecubital; mb9 11:01 Follow up: Response: No adverse reaction mb9 10:41 Drug: Famotidine IVP 20 mg Route: IVP; Site: right antecubital; mb9 11:01 Follow up: Response: No adverse reaction mb9 10:41 Drug: NS 0.9% IV 1000 ml Route: IV; Rate: 1 bolus; Site: right antecubital; mb9 12:12 Follow up: IV Status: Completed infusion; IV Intake: 1000ml eh3 11:16 Drug: Meclizine PO 25 mg Route: PO; mb9 12:12 Follow up: Response: No adverse reaction eh3 12:22 Drug: metoCLOPramide IVP 10 mg Route: IVP; Site: right antecubital; eh3 12:49 Follow up: Response: (VIS) Vaccine information sheet provided today. Questions and/or eh3 concerns addressed. VIS edition date: May 14, 2021.; Nausea is decreased 13:40 Drug: Rocephin IV 1 grams Route: IV; Rate: calculated rate; Site: right antecubital; eh3 14:00 Follow up: Response: No adverse reaction; IV Status: Completed infusion; IV Intake: [id number] 14:50 Drug: Ondansetron IVP 4 mg Route: IVP; Site: right antecubital; eh3 15:20 Follow up: Response: No adverse reaction eh3 Medication: 10:20 VIS not applicable for this client. mb9 Intake: 12:12 IV: 1000ml; Total: 1000ml. eh3 14:00 IV: 50ml; Total: 1050ml. eh3 Outcome: 14:39 Discharge ordered by MD. cp 15:26 Discharged to home via wheelchair, with family. 3 15:26 Condition: stable 15:26 Discharge instructions given to patient, family, Instructed on discharge instructions, follow up and referral plans. medication usage, Demonstrated understanding of instructions, follow-up care, medications, Prescriptions given X 3. 15:26 Patient left the ED. eh3 Signatures: Dispatcher [employer] EDMS Bailey Ragland RN RN iw Garcia Oneill ds4 Jamaal Enamorado PA PA cp Sandy Awad RN RN eh3 Queenie Joel RN RN mb9 Yulissa Jennings mg5 Corrections: (The following items were deleted from the chart) 10:09 10:07 BP 98 / 80; Pulse 110bpm; iw iw 10:10 10:07 BP 98 / 80; Pulse 110bpm; Resp 16bpm; Pulse Ox 97% RA; Temp 98.6F; iw iw
--- NOTE | 2023-06-06 14:41 | EDPHYS ---
Physician Documentation [facility] Name: Cara Doherty Age: 22 yrs Sex: Female : 2000 Arrival Date: 06/06/2023 Time: 09:48 Bed 13 Private MD: ED Physician Marek Chance HPI: 06/06 10:22 This 22 yrs old Female presents to ER via Wheelchair with complaints of Dizziness, cp Vomiting. 10:22 The patient presents with dizziness, lightheadedness. cp 10:22 Onset: The symptoms/episode began/occurred this morning. Associated signs and symptoms: cp Pertinent positives: abdominal pain, nausea, vomiting, constipation, Pertinent negatives: chest pain, focal weakness, head injury. 10:22 Severity of symptoms: in the emergency department the symptoms are unchanged despite cp home interventions. 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 - Social history:: Smoking status: Patient denies any tobacco usage or history of. ROS: 10:30 Constitutional: Negative for body aches, fever. cp 10:30 Eyes: Negative for injury, pain, redness, and discharge. cp 10:30 ENT: Positive for sore throat, Negative for drainage from ear(s), ear pain, difficulty swallowing, difficulty handling secretions. 10:30 Cardiovascular: Negative for chest pain. 10:30 Respiratory: Negative for cough, shortness of breath, wheezing. 10:30 Abdomen/GI: Positive for abdominal pain, nausea and vomiting, constipation, hematemesis, Negative for diarrhea, hematemesis, black/tarry stool, rectal bleeding. 10:30 Skin: Negative for rash. 10:30 Neuro: Positive for dizziness, Negative for altered mental status, weakness. 10:30 : Negative for hematuria, burning with urination. cp 10:30 All other systems are negative. cp Exam: 10:35 Constitutional: The patient appears in no acute distress, alert, awake, non-toxic, well cp developed, well nourished, uncomfortable. 10:35 Head/Face: Normocephalic, atraumatic. cp 10:35 Eyes: Periorbital structures: appear normal, Pupils: equal, round, and reactive to light and accomodation, Extraocular movements: intact throughout, Conjunctiva: normal, no exudate, no injection, Sclera: no appreciated abnormality, Lids and lashes: appear normal, bilaterally. 10:35 ENT: External ear(s): are unremarkable, Nose: is normal, Mouth: Lips: moist, Oral mucosa: pink and intact, moist, Posterior pharynx: is normal, airway is patent, no erythema, no exudate. 10:35 Neck: ROM/movement: is normal, is supple, without pain, no range of motions limitations, no meningismus. 10:35 Chest/axilla: Inspection: normal. 10:35 Cardiovascular: Rate: tachycardic, Rhythm: regular, Edema: is not appreciated, JVD: is not appreciated. 10:35 Respiratory: the patient does not display signs of respiratory distress, Respirations: normal, no use of accessory muscles, no retractions, labored breathing, is not present, Breath sounds: are clear throughout, no decreased breath sounds, no stridor, no wheezing. 10:35 Abdomen/GI: Inspection: abdomen appears normal, Bowel sounds: active, all quadrants, Palpation: soft, in all quadrants, mild abdominal tenderness, in the right lower quadrant and left lower quadrant, rebound tenderness, is not appreciated, involuntary guarding, is not appreciated. 10:35 Back: CVA tenderness, is absent. 10:35 Neuro: Orientation: to person, place \T\ time. Mentation: is normal, Motor: moves all fours, strength is normal. Vital Signs: 10:07 BP 98 / 80; Pulse 110; Resp 16; Temp 98.6; Pulse Ox 97% on R/A; Weight 48.53 kg (R); iw 11:19 BP 111 / 74; Pulse 88; Resp 18; Pulse Ox 100% on R/A; mb9 12:00 BP 120 / 72; Pulse 93; Resp 17; Pulse Ox 100% on R/A; eh3 13:00 BP 121 / 69; Pulse 101; Resp 18; Pulse Ox 99% on R/A; eh3 14:00 BP 119 / 80; Pulse 88; Resp 16; Pulse Ox 100% on R/A; eh3 MDM: 10:13 Patient medically screened. cp 11:00 Differential diagnosis: GI bleed, hypovolemia, idiopathic dizziness, , sepsis. 14:38 Data reviewed: vital signs, nurses notes, lab test result(s), radiologic studies, plain cp films. 14:38 I considered the following discharge prescriptions or medication management in the emergency department Medications were administered in the Emergency Department. See MAR. Historians other than the Patient: Parent: father assists with HPI. Care significantly affected by the following chronic conditions: Autism, epilepsy. Counseling: I had a detailed discussion with the patient and/or guardian regarding the historical points, exam findings, and any diagnostic results supporting the discharge/admit diagnosis, lab results, radiology results, to return to the emergency department if symptoms worsen or persist or if there are any questions or concerns that arise at home. Response to treatment: the patient's symptoms have markedly improved after treatment, and as a result, I will discharge patient. 06/06 10:15 Order name: CBC with Diff; Complete Time: 11:09 06/06 10:15 Order name: CMP; Complete Time: 11: 06/06 10:15 Order name: Lipase; Complete Time: 11:09 06/06 10:15 Order name: Test, Urine; Complete Time: 13:21 06/06 10:15 Order name: Urinalysis w/ reflexes; Complete Time: 13:21 06/06 11:10 Order name: XRAY Abdomen 1 View (KUB); Complete Time: 12:22 06/06 12:23 Interpretation: Report reviewed. 06/06 10:15 Order name: IV Saline Lock; Complete Time: 10:33 06/06 10:15 Order name: Labs collected and sent; Complete Time: 10:33 06/06 13:22 Order name: PO challenge; Complete Time: 14:49 cp Administered Medications: 10:41 Drug: Ondansetron IVP 4 mg Route: IVP; Site: right antecubital; mb9 11:01 Follow up: Response: No adverse reaction mb9 10:41 Drug: Famotidine IVP 20 mg Route: IVP; Site: right antecubital; mb9 11:01 Follow up: Response: No adverse reaction mb9 10:41 Drug: NS 0.9% IV 1000 ml Route: IV; Rate: 1 bolus; Site: right antecubital; mb9 12:12 Follow up: IV Status: Completed infusion; IV Intake: 1000ml eh3 11:16 Drug: Meclizine PO 25 mg Route: PO; mb9 12:12 Follow up: Response: No adverse reaction eh3 12:22 Drug: metoCLOPramide IVP 10 mg Route: IVP; Site: right antecubital; eh3 12:49 Follow up: Response: (VIS) Vaccine information sheet provided today. Questions and/or 3 concerns addressed. VIS edition date: May 14, 2021.; Nausea is decreased 13:40 Drug: Rocephin IV 1 grams Route: IV; Rate: calculated rate; Site: right antecubital; 3 14:00 Follow up: Response: No adverse reaction; IV Status: Completed infusion; IV Intake: [id number] 14:50 Drug: Ondansetron IVP 4 mg Route: IVP; Site: right antecubital; eh3 15:20 Follow up: Response: No adverse reaction 3 Disposition: 06/07 11:29 Co-signature as Attending Physician, Marek MARQUES was immediately available on-site ms3 in the Emergency Department for consultation in the care of the patient. Disposition Summary: 06/06/23 14:39 Discharge Ordered Location: Home cp Problem: new cp Symptoms: have improved cp Condition: Stable cp Diagnosis - Dizziness and giddiness cp - Nausea with vomiting, unspecified cp - UTI/ Urinary tract infection, site not specified cp - Constipation cp Followup: cp - With: Private Physician - When: 2 - 3 days - Reason: Recheck today's complaints Discharge Instructions: - Discharge Summary Sheet cp - Constipation, Adult cp - Dizziness cp - Nausea and Vomiting, Adult cp - Urinary Tract Infection, Adult cp Forms: - Medication Reconciliation Form cp - Thank You Letter cp - Antibiotic Education cp - Prescription Opioid Use cp - Patient Portal Instructions cp - Leadership Thank You Letter cp Prescriptions: - Meclizine 25 mg Oral Tablet - take 1 tablet by ORAL route every 8 hours As needed; 30 tablet; Refills: 0, cp Product Selection Permitted - Zofran 4 mg Oral Tablet - take 1 tablet by ORAL route every 12 hours As needed; 20 tablet; Refills: 0, cp Product Selection Permitted - cefpodoxime 200 mg Oral Tablet - take 1 tablet by ORAL route every 12 hours with food; 14 tablet; Refills: 0, cp Product Selection Permitted Signatures: Dispatcher [employer] Bailey Polk, RN RN Jamaal Bennett PA PA Marek Hurt DO DO ms3 Sandy Awad RN RN eh3 Wisam, Queenie Thornton RN RN mb9 Corrections: (The following items were deleted from the chart) 14:06/06 10:30 Abdomen/GI: Positive for abdominal pain, nausea and vomiting, hematemesis, cp Negative for diarrhea, constipation, cp 06/07 14:00 06/06 10:30 All other systems are negative, cp cp
[2023-06-06 15:51] VITALS: TEMP 98.6
[2023-06-06 15:56] VITALS: BP 119/80; O2SAT 100
== END 2023-06-06 15:26 | disposition home or self-care (01) ==
LOC: ER 09:48
DX: R42 Dizziness and giddiness (principal); R11.2 Nausea with vomiting, unspecified; N39.0 Urinary tract infection, site not specified; K59.00 Constipation, unspecified; F84.0 Autistic disorder
CPT/HCPCS: 85025; 81001; 36415; 81025; 83690; 80053; 74018; J8597; J2765; J2405; J7030; J0696